=== PATIENT | female | born 1955 | race Two or more races ===

== ENCOUNTER → 2024-08-16 | Outpatient (CLI) | payer MEDICARE, OTHER, SELFPAY ==
--- NOTE | 2024-08-16 13:20 | XR_ITS ---
Examination: PA lateral chest 2 views TECHNIQUE: Upright PA lateral chest 2 views Exam date and time: December 16, 2024 at 1353 hours Comparison April 11, 2023 INDICATIONS: Coughing congestion beginning 6 days ago. FINDINGS: Normal heart size. Lungs are clear. The osseous structures are intact IMPRESSION: No active disease
== END | disposition home or self-care (01) ==
PROVIDERS: PCP Family Medicine; Referring Provider Nurse Practitioner Family; Visit Provider Nurse Practitioner Family
DX: R05.9 Cough, unspecified (principal)
CPT/HCPCS: 71046

== ENCOUNTER 2024-09-20 11:30 | Outpatient (RCR) | payer MEDICARE, OTHER, SELFPAY ==
--- NOTE | 2024-09-05 11:19 | PT.OIERPT ---
PT OP Initial Eval Patient Information Outpatient Physical Therapy Treatment Date: 09/05/24 Visit Reasons: CERVICAL PAIN Medical Diagnosis: M50.322 Treatment Dx #1: Neck Pain Treatment Dx #2: BUE Weakness Start of Care: 09/05/24 Date of Onset: 1 year ago Smoking Status Smoking Status: Never smoker Initial Assessment Subjective: Pt is a 69 y/o female reports of chronic neck pain with BUE weakness. 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 Pt seen a surgeon a year ago but now reports that symptoms balance is getting worse. Pt feels like she's walking like a drunk . Pt has difficulty with lifting, chores, self care, cooking, cleaning, and performing recreational activities. Objective: C/S AROM: all motions are 50% towards end range with pain BUE AROM: all motions are WFL BUE MMTs: grossly 3/5 Palpation: TTP upper trape and levator scapulae musculature; hypomobile C4-C7 facets Assessment: Pt demonstrate c/s mobility deficits with BUE weakness consistent with stenosis leading to difficulty with ADLs. Pt will attempt physical therapy if pain persist Pt will be refer back to provider for further consultation. Short Term and Detention Goals 1) Increase c/s AROM WFL in 6 wks to be able to perform chores 2) Decrease neck pain to 2/10 in 6 wks to be able to sit and stand more than 30 mins 3) Increase BUE MMTs grossly to 4-/5 in 6 wks to be able to perform lifting activities 4) Increase scapula MMTs grossly to 4-/5 in 6 wks to be able to perform self care activities 5) Indep with HEP Treatment Plan 1) Manual Therapy 2) Therapeutic Activities 3) Therapeutic Exercises 4) Modalities (ice, heat) Frequency and Duration: 2 x wk for 6 wks Certification Dates: 09/05/24 to 12/06/24 Procedure Charges OP PT Eval Mod Complex 30 minutes: Yes
--- NOTE | 2024-09-11 13:41 | PT.ODAYNRPT ---
PT Outpatient Daily Note OP Daily Note Outpatient Physical Therapy Treatment Date: 09/11/24 Visit Reasons: CERVICAL PAIN Subjective: Pt's neck pain is about the same. Pt continues to have weakness in her hands. Objective: Please see flow chart for list of ther ex performed Assessment: tolerate exercises with minimal pain Plan: Continue with PT Length of Time (minutes) of Treatment: 30 Minutes Procedure Charges Therapeutic Exercise 30 minutes: Yes
--- NOTE | 2024-09-20 11:44 | PT.ODAYNRPT ---
PT Outpatient Daily Note OP Daily Note Outpatient Physical Therapy Treatment Date: 09/20/24 Visit Reasons: CERVICAL PAIN Subjective: Pt's neck is doing okay. Pt still has intermittent pain in the arms. Objective: Please see flow chart for list of ther ex performed Assessment: tolerate exercises with minimal pain Plan: Continue with PT Length of Time (minutes) of Treatment: 30 Minutes Procedure Charges Therapeutic Exercise 30 minutes: Yes
== END 2024-09-21 23:59 | disposition home or self-care (01) ==
LOC: CPTX 11:30
PROVIDERS: PCP Nurse Practitioner; Referring Provider Nurse Practitioner; Visit Provider Nurse Practitioner
DX: M50.322 Other cervical disc degeneration at C5-C6 level (principal); M48.02 Spinal stenosis, cervical region
CPT/HCPCS: 97110; 97162

== ENCOUNTER 2024-10-03 11:30 | Outpatient (RCR) | payer MEDICARE, OTHER, SELFPAY ==
--- NOTE | 2024-10-01 11:53 | PT.ODAYNRPT ---
PT Outpatient Daily Note OP Daily Note Outpatient Physical Therapy Treatment Date: 10/01/24 Visit Reasons: neck pain Subjective: Pt notice decrease unsteady gait. Pt mention stretching is helping a lot. Objective: Please see flow chart for list of ther ex performed Assessment: improving with upper trape and levator scapulae tension. Minimal changes reported with radicular pain in the UE Plan: Continue with PT Length of Time (minutes) of Treatment: 30 Minutes Procedure Charges Therapeutic Exercise 30 minutes: Yes
--- NOTE | 2024-10-03 14:13 | PT.ODAYNRPT ---
PT Outpatient Daily Note OP Daily Note Outpatient Physical Therapy Treatment Date: 10/03/24 Visit Reasons: neck pain Subjective: Pt reports neck is doing a little better. Objective: Please see flow sheet for ther ex list. Assessment: Pt tolerated interventions well, performed passive upper trap stretches with no complaints. Plan: Continue with POC. Length of Time (minutes) of Treatment: 30 Minutes CLINICAL TRIAL EDUCATOR Service Modifier Method I: Divide the number of min of care provided by the CLINICAL TRIAL EDUCATOR/PLANT HEALTH CARE TECHNICIAN by the total min of care provided then multiply by 100. If greater than 11 percent modifier is required. Method II: Divide the total time of care provided to patient by 10 (round to the nearest whole number) and add 1 min. to set the minimum time requirement. If treatment total was 60 min., then 10% of 6 min PT CQ modifier applied: CQ Modifier applied Procedure Charges Therapeutic Exercise 30 minutes: Yes
== END 2024-10-21 23:59 | disposition home or self-care (01) ==
LOC: CPTX 11:30
PROVIDERS: PCP Nurse Practitioner; Referring Provider Nurse Practitioner; Visit Provider Nurse Practitioner
DX: M50.322 Other cervical disc degeneration at C5-C6 level (principal)
CPT/HCPCS: 97110

== ENCOUNTER → 2024-10-29 | Outpatient (CLI) | payer MEDICARE, OTHER, SELFPAY ==
--- NOTE | 2024-10-29 14:30 | XR_ITS ---
Examination: Screening digital mammography, bilateral Computer aided detection 3-D breast Tomosynthesis, bilateral Date and time of exam: October 29, 2024 1453 hours Compared to mammograms dating to November 02, 2016 Indication: Screening Technique: Nonmagnified MLO, CC views of the breasts to been obtained, reconstructed from 3-D Tomosynthesis images. R2 computer aided detection program utilized for evaluation of suspicious masses and/or abnormal calcifications. 3-D Tomosynthesis images obtained. Findings: The breasts are heterogeneously dense, which may obscure small masses 16mm nodule partially circumscribed 3:00 position right breast Impression: BI-RADS Category 0: Incomplete: Need additional imaging evaluation Recommend follow-up spot tomographic views of 3:00 nodule right breast described above as well as bilateral breast sonography to complete the workup
== END | disposition home or self-care (01) ==
LOC: CDIM 14:34
PROVIDERS: Referring Provider Nurse Practitioner Family; Visit Provider Nurse Practitioner Family
DX: Z12.31 Encounter for screening mammogram for malignant neoplasm of breast (principal); N63.15 Unspecified lump in the right breast, overlapping quadrants
CPT/HCPCS: 77063; 77067

== ENCOUNTER → 2024-11-13 | Outpatient (CLI) | payer MEDICARE, OTHER, SELFPAY ==
--- NOTE | 2024-11-13 09:21 | XR_ITS ---
Examination: Diagnostic digital mammography, unilateral, right Computer aided detection 3-D breast Tomosynthesis, unilateral Date and time of exam: November 14, 2019 5:10 AM INDICATIONS: Mammogram October 29, 2024 16 mm circumscribed nodule 3:00 position right breast Technique: Nonmagnified MLO, CC views of the right breast have been obtained, reconstructed from 3-D Tomosynthesis images. R2 computer aided detection program utilized for evaluation of suspicious masses and/or abnormal calcifications. 3-D Tomosynthesis images obtained. Findings: The breast is heterogeneously dense, which may obscure small masses Partially circumscribed nodule 3:00 position right breast, probably benign Impression: BI-RADS category 3: Probably benign findings One additional 6 month right mammogram follow-up needed to document stability of 3:00 nodule described above
--- NOTE | 2024-11-13 09:29 | XR_ITS ---
Examination: Breast ultrasound complete, bilateral Date and time of exam: November 13, 2024 0946 hours INDICATIONS: Mammogram November 08, 2024 16 mm nodule 3:00 position right breast Technique: Real-time grayscale ultrasonographic imaging bilateral breasts, including all 4 quadrants as well as nipple retroareolar and axillary regions. Findings: Sonographic images right breast 3:00 nodule circumscribed 11 x 7 mm 10:00 nodule circumscribed 4 x 4 millimeter Sonographic images left breast 10:00 cyst 11 x 7 mm No solid nodules IMPRESSION: BI-RADS Category 3: Probably benign findings. One additional 6 month right mammogram follow-up is needed to document stability of solid nodules described above
== END | disposition home or self-care (01) ==
PROVIDERS: PCP Nurse Practitioner Family; Referring Provider Nurse Practitioner Family; Visit Provider Nurse Practitioner Family
DX: R92.331 Mammographic heterogeneous density, right breast (principal); N63.15 Unspecified lump in the right breast, overlapping quadrants; N63.11 Unspecified lump in the right breast, upper outer quadrant
CPT/HCPCS: 76641; 77061; 77065; G0279

== ENCOUNTER 2024-11-20 11:00 | Outpatient (RCR) | payer MEDICARE, OTHER, SELFPAY ==
--- NOTE | 2024-10-24 13:27 | PT.ODAYNRPT ---
PT Outpatient Daily Note OP Daily Note Outpatient Physical Therapy Treatment Date: 10/24/24 Visit Reasons: Neck pain Subjective: No changes or progress to report at this time. Objective: Please see flow sheet for ther ex list. Assessment: Perfomed light upper trap and levator scap stretches pt tolerted with no complaints. Plan: Continue with POC. Length of Time (minutes) of Treatment: 30 Minutes STEAM PRESSURE CHAMBER OPERATOR Service Modifier Method I: Divide the number of min of care provided by the STEAM PRESSURE CHAMBER OPERATOR/YVONNE by the total min of care provided then multiply by 100. If greater than 11 percent modifier is required. Method II: Divide the total time of care provided to patient by 10 (round to the nearest whole number) and add 1 min. to set the minimum time requirement. If treatment total was 60 min., then 10% of 6 min PT CQ modifier applied: CQ Modifier applied Procedure Charges Therapeutic Exercise 30 minutes: Yes
--- NOTE | 2024-11-06 09:20 | PT.ODAYNRPT ---
PT Outpatient Daily Note OP Daily Note Outpatient Physical Therapy Treatment Date: 11/06/24 Visit Reasons: Neck pain Subjective: Pt reports neck is feeling better. Objective: Please see flow sheet for ther ex list. Assessment: Verbal cues to perform cervical retraction with desired motion, pt complied. Plan: Continue with pOC. Length of Time (minutes) of Treatment: 30 Minutes Procedure Charges Therapeutic Exercise 30 minutes: Yes
--- NOTE | 2024-11-12 10:04 | PT.ODAYNRPT ---
PT Outpatient Daily Note OP Daily Note Outpatient Physical Therapy Treatment Date: 11/12/24 Visit Reasons: Neck pain Subjective: Pt reports progress with neck symptoms. Objective: Please see flow sheet for ther ex list. Assessment: Progressing interventions as tolerated. Plan: Continue with POC. Length of Time (minutes) of Treatment: 30 Minutes ARCADE GAME TECHNICIAN Service Modifier Method I: Divide the number of min of care provided by the ARCADE GAME TECHNICIAN/WEIGH BOX TENDER by the total min of care provided then multiply by 100. If greater than 11 percent modifier is required. Method II: Divide the total time of care provided to patient by 10 (round to the nearest whole number) and add 1 min. to set the minimum time requirement. If treatment total was 60 min., then 10% of 6 min PT CQ modifier applied: CQ Modifier applied Procedure Charges Therapeutic Exercise 30 minutes: Yes
--- NOTE | 2024-11-18 14:22 | PT.ODAYNRPT ---
PT Outpatient Daily Note OP Daily Note Outpatient Physical Therapy Treatment Date: 11/18/24 Visit Reasons: Neck pain Subjective: Pt's neck is better. Pt still notice her left side more tight vs to the right side. Pt will be scheduling another appt with PCP soon. Objective: Please see flow chart for list of ther ex performed Assessment: patient exhibit upper trape and levator tightness L>R; decrease tightness post stretching. Cues to correct HHR form in standing Plan: Continue with PT Length of Time (minutes) of Treatment: 30 Minutes Procedure Charges Therapeutic Exercise 30 minutes: Yes
--- NOTE | 2024-11-20 11:10 | PT.ODAYNRPT ---
PT Outpatient Daily Note OP Daily Note Outpatient Physical Therapy Treatment Date: 11/20/24 Visit Reasons: Neck pain Subjective: Pt does not have any new concerns. Pt's neck feels much better and less restricted. Pt feels comfortable being release from therapy in 2 sessions Objective: Please see flow chart for list of ther ex performed Assessment: patient improve improvement with c/s AROM with less pain reported. Less cues given today to correct row/low row exercises Plan: Continue with PT Length of Time (minutes) of Treatment: 30 Minutes Procedure Charges Therapeutic Exercise 30 minutes: Yes
== END 2024-11-21 23:59 | disposition home or self-care (01) ==
LOC: CPTX 11:00
PROVIDERS: PCP Nurse Practitioner; Referring Provider Nurse Practitioner; Visit Provider Nurse Practitioner
DX: M50.322 Other cervical disc degeneration at C5-C6 level (principal)
CPT/HCPCS: 97110

== ENCOUNTER 2024-11-28 10:59 | Outpatient (RCR) | payer MEDICARE, OTHER, SELFPAY ==
--- NOTE | 2024-11-28 11:59 | PT.ODAYNRPT ---
PT Outpatient Daily Note OP Daily Note Outpatient Physical Therapy Treatment Date: 11/28/24 Visit Reasons: neck pain Subjective: Pt's neck and balance is much better. Pt still has intermittent pain down the arms but less intense lately. Objective: Please see flow chart for list of ther ex performed Assessment: added more thoracic and scapula exercise to program with good tolerance. Cues to keep elbow on the wall with wall alejandro to perform exercise correctly Plan: Continue with PT Length of Time (minutes) of Treatment: 30 Minutes Procedure Charges Therapeutic Exercise 30 minutes: Yes
--- NOTE | 2024-12-16 12:54 | PT.ODS1RPT ---
PT OP Progress/Discharge Note Date of Service: 12/16/24 Progress Note/DC Note Progress Note/Discharge Note: DC Note Patient Information Visit Reasons: neck pain Medical Diagnosis: M50.322 Service Continue Service or Discharge: Discharge Discharge Date: 12/16/24 Status Assessment: Pt has been seen for 11 visits (eval + 10 visits) inconsistently. Pt last treated on 11/28/24 and no showed multiple appts (10/29, 12/06, and 12/13). At this time Pt will be d/c from care due to non-compliance per attendance policy. Pt did not meet set goals in therapy; thank you for your referrals
== END 2024-12-22 23:59 | disposition home or self-care (01) ==
LOC: CPTX 10:59
PROVIDERS: PCP Nurse Practitioner; Referring Provider Nurse Practitioner; Visit Provider Nurse Practitioner
DX: M48.02 Spinal stenosis, cervical region (principal); M50.322 Other cervical disc degeneration at C5-C6 level
CPT/HCPCS: 97110

== ENCOUNTER → 2025-01-07 | Outpatient (CLI) | payer MEDICARE, OTHER, SELFPAY ==
--- NOTE | 2025-01-07 10:21 | XR_ITS ---
Examination: Abdomen sonogram, complete Date and time of exam: January 07, 2025 1030 hours INDICATIONS: Right lower abdominal pain beginning one month ago. Technique: Multiple real-time grayscale transabdominal sonographic images of the abdomen have been obtained. Findings: 5 mm gallstone Normal gallbladder wall. Normal common bile duct 0.5 cm. Pancreatic head 2.1 cm. Aorta not enlarged. Liver 13.4 cm fatty infiltration Normal hepatopedal portal venous flow Patent IVC. Right kidney 8.8 cm cortex 0.9 cm Left kidney 9.1 cm cortex 0.9 cm 11 mm midpole left renal calculus Mild to moderate bilateral renal scarring Spleen 8.1 cm IMPRESSION: Cholelithiasis, negative for cholecystitis 11 mm nonobstructing left renal calculus.
== END | disposition home or self-care (01) ==
LOC: CDIM 09:58
PROVIDERS: PCP Family Medicine; Referring Provider Nurse Practitioner Family; Visit Provider Nurse Practitioner Family
DX: K80.20 Calculus of gallbladder without cholecystitis without obstruction (principal); N20.0 Calculus of kidney
CPT/HCPCS: 76700

== ENCOUNTER 2025-04-01 05:45 | Day surgery (SDC) | payer MEDICARE, OTHER, SELFPAY ==
--- NOTE | 2025-03-31 07:00 | EKG_ITS ---
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
[2025-03-31 10:57] VITALS: BMI 24.0
[2025-03-31 11:56] LABS: Basophils # (Auto) 0.1 Thou/mm3 (0.0-0.2); Basophils % (Auto) 1 % (0-2.5); Eosinophils # (Auto) 0.3 Thou/mm3 (0.0-0.5); Eosinophils % (Auto) 4 % (0-10); Hematocrit 43.0 % (36.0-46.0); Hemoglobin 14.0 g/dL (12.0-16.0); Immature Granulocytes Auto 0.01 Thou/mm3 (0.00-0.00); Lymphocytes # (Auto) 2.6 Thou/mm3 (1.0-4.8); Lymphocytes % (Auto) 39 % (10-50); Mean Corpuscular HGB Conc 32.6 g/dl (31.0-37.0); Mean Corpuscular Hemoglobin 31.3 pg (25.0-35.0); Mean Corpuscular Volume 96 fL (80-100); Monocytes # (Auto) 0.6 Thou/mm3 (0.0-0.8); Monocytes % (Auto) 9 % (0-12); Neutrophils # (Auto) 3.2 Thou/mm3 (1.8-7.7); Neutrophils % (Auto) 47 % (37-80); Nucleated Red Blood Cell # 0.00 Thou/mm3 (0.00-0.00); Nucleated Red Blood Cell % 0 /100 WBC (0); Platelet Count 196 Thou/mm3 (140-440); RDW Standard Deviation 44.7 fL (36.4-46.3); Red Blood Count 4.48 Miln/mm3 (4.00-5.20); White Blood Count 6.8 Thou/mm3 (3.6-11.0)
[2025-03-31 12:05] LABS: Alanine Aminotransferase 14 U/L (10-49); Albumin, Serum 4.8 gm/dL (3.4-4.8); Albumin/Globulin Ratio 1.7 (1.2-2.2); Alkaline Phosphatase 85 U/L (46-116); Anion Gap 9 (7-16); Aspartate Amino Transferase 19 U/L (0-34); BUN/Creatinine Ratio 18 Ratio (12-20); Bilirubin,Total 0.5 mg/dL (0.3-1.2); Blood Urea Nitrogen 18 mg/dL (9-23); Calcium 11.1 mg/dL (8.3-10.6); Calcium (Corrected) 11.1 mg/dL (8.5-10.1); Carbon Dioxide 29.0 mMol/L (20.0-31.0); Chloride 104 mMol/L (98-107); Creatinine (Component) 1.0 mg/dL (0.6-1.3); Estimated Creatinine Clearance 44.5 mL/min (>60); Globulin 2.8 gm/dL (2.3-3.5); Glucose 92 mg/dL (74-106); Osmolality,Calculated 285 (275-295); Potassium 4.6 mMol/L (3.4-5.1); Sodium 142 mMol/L (136-145); Total Protein 7.6 gm/dL (5.7-8.2); eGFR > 60 See Note
[2025-04-01] VITALS (8 sets, daily range): BP systolic 116–153; BP diastolic 54–76; PULSE 50–63; RESP 12–19; TEMP 36–36.7; O2SAT 97–100; BMI 23.2
--- NOTE | 2025-04-01 07:25 | CHAP ---
Visited with patient giving encouragement and prayer before procedure.
--- NOTE | 2025-04-01 08:20 | PD.SUROPNT ---
Date of Procedure 04/01/25 Pre Op Diagnosis Symptomatic cholelithiasis Post Op Diagnosis Cholelithiasis with cholecystitis Procedure Laparoscopic cholecystectomy Findings Moderately distended gallbladder with small gallstones and chronic cholecystitis Procedure Description Patient was brought into the operating room in supine position. After administration of general endotracheal anesthesia abdomen was prepped and draped in standard surgical manner. A Veress needle was inserted through the umbilicus and pneumoperitoneum was obtained up to 15 mmHg. The Veress needle was then removed, a 5 mm infraumbilical incision was made and the 5mm trocar was inserted. Laparoscopic camera was placed. Under direct visualization a laparoscopic camera a 10 mm trocar was placed in subxiphoid and two 5 mm trocars placed in right upper quadrant. The gallbladder was identified and was noted to be moderately distended with small gallstones and chronic cholecystitis. It was retracted cephalad and laterally. Dissection started near the infundibulum of gallbladder where cystic duct and gallbladder junction clearly identified. The cystic duct was circumferentially dissected off the peritoneum and surrounding inflammatory tissue. The critical view of safety was clearly demonstrated. Cystic duct was then divided between 2 endoclips proximally and one distally. The cystic artery was similarly dissected and divided. The gallbladder was then from the liver bed using electrocautery. The gallbladder was then placed inside an Endo Catch and removed from the abdomen utilizing subxiphoid trocar site. The area was copiously and thoroughly washed and irrigated, all the fluid was suctioned and the suction fluid returned clear. Hemostasis achieved using electrocautery. Endoclips noted be in place and intact without any bleeding or any leakage. Hemostasis was adequate and satisfactory. The subxiphoid trocar sites fascial defect was closed with 0 Vicryl using Endo Closure device. Instruments and trocars removed, pneumoperitoneum was evacuated and the incisions closed with 4-0 Monocryl in subcuticular fashion. Instrument needle and sponge counts were all reported to be correct X2. Patient tolerated the procedure well, was extubated, breathing spontaneously and without difficulty and was transferred to postanesthesia care in stable condition. Anesthesia GETA and local Pathology / specimen Other (Gallbladder and contents) Estimated Blood Loss 25 Condition Stable Disposition PACU Surgeon Kaz Olmedo MD Surgical Staff Operation Date: 04/01/25 07:30 Case Staff Anesthesiologist: Zackery Valdovinos RN First Assistant: Aixa Razo
--- NOTE | 2025-04-01 08:26 | SUR.PHASEI ---
0826 patient arrived to recovery resting comfortably in [facility], sleeping able to arouse with verbal prompting then drifts back to sleep, on oxygen 8L via oxy mask, breathing unlabored, vital signs stable, denies pain, dressing intact to abdomen; dermabond, no bleeding noted, report received from Dr. Valdovinos and Maggie YOON
[2025-04-01] MEDS: HYDROmorphone INJ 2 MG/ML VIAL 0.4 MG IVP (08:58)
[2025-04-01] MEDS: MORPHINE SULF INJ 4 MG/ML VIAL 3 MG IV (09:09)
--- NOTE | 2025-04-01 09:30 | SUR.PHASEII ---
0930 patient meets discharge criteria from recovery, awake and alert, breathing unlabored, vital signs stable, dressing intact; no bleeding noted, per patient her pain is tolerable, assisted with dressing into her clothing by this va underwriter, drinking 7up; tolerating well, denies nausea, discharge instructions given to patient and patietns , signed discharge instructions. Patient given all her belongings prior to discharge, transported via wheelchair and left in a private vehicle.
== END 2025-04-01 09:30 | disposition home or self-care (01) ==
PROVIDERS: PCP Family Medicine; Referring Provider Surgery; Visit Provider Surgery
PROC: 0FT44ZZ Resection of Gallbladder, Percutaneous Endoscopic Approach (ICD-10-PCS; CPT 47562; principal; 2025-04-01 07:30)
DX: K80.10 Calculus of gallbladder with chronic cholecystitis without obstruction (principal); Z01.810 Encounter for preprocedural cardiovascular examination; M19.90 Unspecified osteoarthritis, unspecified site; M79.7 Fibromyalgia; I10 Essential (primary) hypertension; B19.20 Unspecified viral hepatitis C without hepatic coma; Z79.899 Other long term (current) drug therapy
CPT/HCPCS: 47562; 36415; 80053; 85025; 85610; 85730; 93005; A4217; A4649; J0131; J0694; J1100; J1171; J1885; J2250; J2270; J2371; J2405; J2704; J3010; J3490